=== PATIENT | female | born 1955 | race Asian ===

== ENCOUNTER → 2018-06-17 08:53 | Outpatient (CLI) | payer OTHER, SELFPAY ==
--- NOTE | 2018-06-17 | DI.US.S_ITS ---
PROCEDURE: US ABDOMEN COMPLETE INDICATIONS: EPIGASTRIC PAIN TECHNIQUE: Real-time scanning was performed of the abdominal and retroperitoneal organs, with image documentation. COMPARISON: None. FINDINGS: Liver: The liver demonstrates normal size. The liver demonstrates generalized increased echogenicity. This decreases ultrasound sensitivity for detection of hepatic masses. Gallbladder: No findings of gallstones or sludge are seen. The gallbladder wall is not thickened, measuring 3 mm or less. No specific pericholecystic fluid is seen. The sonographic Bynum sign is negative. Biliary ducts: Not seen. Pancreas: Visualized portions of the pancreas are sonographically normal. Spleen: Spleen is normal in size and homogeneous in echotexture. Kidneys: Kidneys are normal in size and echotexture. Right kidney measures 9.3 cm long; left kidney measures 9 cm long. No hydronephrosis or nephrolithiasis. No solid masses. At the superior pole of the right kidney, there is a cyst seen that measures up to 1.5 cm. Aorta: Visualized aorta is normal in caliber at less than 3 cm. Iliacs: Proximal common iliac arteries are normal in caliber at less than 2.5 cm. IVC: Intrahepatic inferior vena cava is patent. Miscellaneous: No free abdominal fluid. IMPRESSION: The gallbladder demonstrates a normal sonographic appearance. The biliary tree is not seen. The liver demonstrates increased echogenicity. This finding is nonspecific, yet it is most commonly attributed to fatty infiltration. Dictated by: Jamari Eduardo M.D. on 06/17/2018 at 11:56 Approved by: Jamari Eduardo M.D. on 06/17/2018 at 11:57
== END ==
PROVIDERS: PCP Nurse Practitioner Family; Visit Provider Nurse Practitioner Family
DX: R10.13 Epigastric pain (principal)
CPT/HCPCS: 76700

== ENCOUNTER → 2018-07-02 09:28 | Outpatient (CLI) | payer OTHER, SELFPAY ==
--- NOTE | 2018-07-02 | DI.MG.S_ITS ---
BILATERAL DIGITAL SCREENING MAMMOGRAM 3D/2D WITH CAD: 07/02/2018 CLINICAL: Baseline exam. Routine screening. No prior exams were available for comparison. The tissue of both breasts is heterogeneously dense. This may lower the sensitivity of mammography. Current study was also evaluated with a Computer Aided Detection (CAD) system. There are benign vascular calcifications in both breasts. No significant masses, calcifications, or other findings are seen in either breast. IMPRESSION: There is no mammographic evidence of malignancy. A 1 year screening mammogram is recommended. This exam was interpreted at Station ID: [id number]. NOTE: For mammograms, a report in lay terms will be sent to the patient. Approximately 15% of breast malignancies will not be visualized mammographically. In the management of a palpable breast mass, a negative mammogram must not discourage biopsy of a clinically suspicious lesion. Electronically Signed By: Steven gracia/sariah:07/02/2018 17:53:32 letter sent: Normal Exam ACR BI-RADS Category 2: Benign Finding(s) 3342F
== END ==
PROVIDERS: PCP Nurse Practitioner Family; Visit Provider Nurse Practitioner Family
DX: Z12.31 Encounter for screening mammogram for malignant neoplasm of breast (principal)
CPT/HCPCS: 77063; 77067

== ENCOUNTER → 2020-01-23 14:55 | Outpatient (CLI) | payer OTHER, SELFPAY ==
[2020-01-23 16:26] LABS: COVID19 -Nasal RAPID Negative (Negative)
== END ==
PROVIDERS: PCP Nurse Practitioner Family; Visit Provider Nurse Practitioner
DX: Z11.59 Encounter for screening for other viral diseases (principal)
CPT/HCPCS: 87635

== ENCOUNTER 2020-01-26 10:41 | Day surgery (SDC) | payer OTHER, SELFPAY ==
[2020-01-26 11:04] VITALS: BP 165/89; PULSE 75; RESP 16; TEMP 36.4; O2SAT 99; BMI 25.4
[2020-01-26] MEDS: PROPARACAINE 0.5% OPHTH SOL 2 DROPS EYE-OP (11:17)
[2020-01-26] MEDS: CATARACT EYE COMPOUND (10 DROPS/SYRINGE) 3 DROPS EYE-OP (11:27)
--- NOTE | 2020-01-26 12:13 | PM.PREOP ---
Pre-operative Note Interval Note History & Physical reviewed/Exam performed by Physician: Yes Changes to H&P: No
--- NOTE | 2020-01-26 12:13 | PM.OP.1 ---
Operative Date/Time/Diagnoses Pre-op diagnosis: Nuclear cataract right eye Procedure & Clinicians Procedure: Cataract Surgery Same procedure as scheduled: Yes Surgeon: Alfredo Lewis Anesthesia Type: Sedation Operative Notes Procedure in detail: Patient brought to the operating suite. The patient underwent general anesthesia with LMA. Tetracaine drops placed in the right eye. Patient was prepped and draped in sterile manner. Wire lid speculum was placed in the eye. Betadine drops were placed on the eye. This was irrigated. Lidocaine jelly was placed on the eye. A paracentesis port was created with a side-port blade. 0.1 mL 1% preservative free lidocaine was injected into the anterior chamber. The anterior chamber was deepened with viscoelastic. 2.6 mm keratome was used to create a temporal clear corneal incision. Cystotome and Utrata forceps were used to create continuous tear capsulorrhexis. Balanced salt solution was used to hydro dissect the nucleus. The phacoemulsification handpiece was inserted and the nucleus was removed using the stop and chop technique. The irrigation aspiration handpiece was inserted and the remaining cortex was removed. Anterior chamber was deepened with viscoelastic. An Baig ZCB00 intraocular lens with a power of 17.5 was injected into the capsular bag. Irrigation aspiration handpiece was inserted and the remaining viscoelastic was removed. Incision was hydrated with balanced salt solution and found to be leak free with pressure with Weck-Samaria sponges. 0.1 mL Vigamox injected anterior chamber. 0.3 mL Kenalog 10 mg was injected subconjunctivally. Lid speculum was removed. The patient left the operating room in excellent condition. Complications: none Post-operative Condition: stable Disposition: same day surgery
[2020-01-26] MEDS: LACTATED RINGERS 1,000 ML 42 ML IV (12:24)
--- NOTE | 2020-01-26 12:24 | SUR.PREOP ---
IV fluid hung per Dr. Farnsworth, He gave versed; Did not put patient on continuous pulse oximeter as smoking pipe driller and threader is her to take patient to the patient to the OR. Daughter going to the car to wait for her.
[2020-01-26] MEDS: CHONDROIDTIN/SOD HYALURONATE 1.05 ML SYRINGE INTRAOCULA (12:40)
[2020-01-26] MEDS: MOXIFLOXACIN INJ 5 MG/ML VIAL EYE-OP (12:40)
[2020-01-26] MEDS: PHENYLEPHRINE/LIDOCAINE VIAL (OR) 0.2 ML EYE-OP (12:40)
[2020-01-26] MEDS: BALANCED SALT IRRIG SOLN NO.2 500 ML, EPINEPHrine 1 MG IRR (12:41)
[2020-01-26] MEDS: TETRACAINE 0.5% OPHTH DROPS 4 ML 2 DROPS EYE-OP (12:41)
[2020-01-26] MEDS: LIDOCAINE JELLY 2% 5 ML 1 APPLIC TOP (12:41)
[2020-01-26] MEDS: TRIAMCINOLONE 50 MG/5 ML VIAL INJ (12:41)
[2020-01-26 12:51] VITALS: BP 108/60; PULSE 80; RESP 12; TEMP 36.1; O2SAT 90
[2020-01-26 12:56] VITALS: BP 117/69; PULSE 85; RESP 14; TEMP 36.1; O2SAT 96
[2020-01-26 13:01] VITALS: BP 126/77; PULSE 97; RESP 17; TEMP 36.1; O2SAT 95
[2020-01-26 13:06] VITALS: BP 127/73; PULSE 93; RESP 22; TEMP 36.2; O2SAT 95
[2020-01-26 13:09] VITALS: BP 122/80; PULSE 89; RESP 20; TEMP 35.9; O2SAT 94
== END 2020-01-26 13:18 | disposition home or self-care (01) ==
PROVIDERS: PCP Nurse Practitioner Family; Referring Provider Ophthalmology; Visit Provider Ophthalmology
PROC: (CPT 66984; principal; 2020-01-26 12:45)
DX: H25.11 Age-related nuclear cataract, right eye (principal)
CPT/HCPCS: 66984; J0171; J2250; J2704; J3010; J3301

== ENCOUNTER → 2020-02-08 11:07 | Outpatient (CLI) | payer OTHER, SELFPAY ==
[2020-02-08 11:53] LABS: COVID19 -Nasal RAPID Negative (Negative)
== END ==
PROVIDERS: PCP Nurse Practitioner Family; Visit Provider Physician Assistant
DX: Z11.59 Encounter for screening for other viral diseases (principal)
CPT/HCPCS: 87635

== ENCOUNTER 2020-02-09 11:16 | Day surgery (SDC) | payer OTHER, SELFPAY ==
[2020-02-09] VITALS (9 sets, daily range): BP systolic 127–154; BP diastolic 72–88; PULSE 77–94; RESP 12–18; TEMP 36.2–37.1; O2SAT 94–99; BMI 26.4
[2020-02-09] MEDS: PROPARACAINE 0.5% OPHTH SOL 2 DROPS EYE-OP (12:28)
[2020-02-09] MEDS: CATARACT EYE COMPOUND (10 DROPS/SYRINGE) 3 DROPS EYE-OP (12:31)
--- NOTE | 2020-02-09 13:04 | PM.PREOP ---
Pre-operative Note Interval Note History & Physical reviewed/Exam performed by Physician: Yes Changes to H&P: No
--- NOTE | 2020-02-09 13:05 | PM.OP.1 ---
Operative Date/Time/Diagnoses Pre-op diagnosis: Nuclear Cataract Left eye Post-op diagnosis: same Procedure & Clinicians Same procedure as scheduled: Yes Surgeon: Alfredo Lewis Anesthesia Type: Sedation Operative Notes Procedure in detail: Patient brought to the operating suite. Patient underwent genereal anesthesia. Tetracaine drops placed in the left eye. Patient was prepped and draped in sterile manner. Wire lid speculum was placed in the eye. Betadine drops were placed on the eye. This was irrigated. Lidocaine jelly was placed on the eye. A paracentesis port was created with a side-port blade. 0.1 mL 1% preservative free lidocaine was injected into the anterior chamber. The anterior chamber was deepened with viscoelastic. 2.6 mm keratome was used to create a temporal clear corneal incision. Cystotome and Utrata forceps were used to create continuous tear capsulorrhexis. Balanced salt solution was used to hydro dissect the nucleus. The phacoemulsification handpiece was inserted and the nucleus was removed using the stop and chop technique. The irrigation aspiration handpiece was inserted and the remaining cortex was removed. Anterior chamber was deepened with viscoelastic. An Baig ZCB00 intraocular lens with a power of 18.0 was injected into the capsular bag. Irrigation aspiration handpiece was inserted and the remaining viscoelastic was removed. Incision was hydrated with balanced salt solution and found to be leak free with pressure with Weck-Samaria sponges. 0.1 mL Vigamox injected anterior chamber. 0.3 mL Kenalog 10 mg was injected subconjunctivally. Lid speculum was removed. The patient left the operating room in excellent condition. Complications: none Post-operative Condition: stable Disposition: same day surgery
[2020-02-09] MEDS: TRIAMCINOLONE 50 MG/5 ML VIAL INJ (13:25)
[2020-02-09] MEDS: CHONDROIDTIN/SOD HYALURONATE 1.05 ML SYRINGE INTRAOCULA (13:25)
[2020-02-09] MEDS: LIDOCAINE JELLY 2% 5 ML 1 APPLIC TOP (13:25)
[2020-02-09] MEDS: MOXIFLOXACIN INJ 5 MG/ML VIAL EYE-OP (13:25)
[2020-02-09] MEDS: TETRACAINE 0.5% OPHTH DROPS 4 ML 2 DROPS EYE-OP (13:25)
[2020-02-09] MEDS: PHENYLEPHRINE/LIDOCAINE VIAL (OR) 0.2 ML EYE-OP (13:25)
[2020-02-09] MEDS: BALANCED SALT IRRIG SOLN NO.2 500 ML, EPINEPHrine 1 MG IRR (13:26)
--- NOTE | 2020-02-09 13:54 | SUR.PHASEI ---
1352 daughter brought into phase 1 to be available for when pt. pitts.
== END 2020-02-09 14:30 | disposition home or self-care (01) ==
PROVIDERS: PCP Nurse Practitioner Family; Referring Provider Ophthalmology; Visit Provider Ophthalmology
PROC: (CPT 66984; principal; 2020-02-09 13:15)
DX: H25.12 Age-related nuclear cataract, left eye (principal)
CPT/HCPCS: 66984; J0171; J3010; J3301

== ENCOUNTER 2020-10-28 15:30 | Emergency (ER) | payer OTHER, MEDICAID, SELFPAY ==
[2020-10-28 15:48] VITALS: BP 166/82; PULSE 75; RESP 18; TEMP 36.8; O2SAT 97; BMI 25.0
--- NOTE | 2020-10-28 15:52 | DI.RAD.S_ITS ---
PROCEDURE: XR ANKLE RT MIN 3V INDICATIONS: fall TECHNIQUE: 3 views of the ankle were acquired. COMPARISON: None. FINDINGS: Bones: Fracture to the base of the anterior process of the calcaneus. Ankle mortise is normally aligned. No suspicious bony lesions. Soft tissues: No tibiotalar joint effusion. Achilles tendon appears normal. Soft tissue swelling is noted and ligamentous injury cannot be excluded. IMPRESSION: Displaced calcaneus fracture. Dictated by: Kait Church MD, PhD on 10/28/2020 at 16:14 Approved by: Kait Church MD, PhD on 10/28/2020 at 16:16
[2020-10-28 19:52] VITALS: BP 190/90; PULSE 67; RESP 16; O2SAT 98
--- NOTE | 2020-10-28 20:21 | DI.CT.S_ITS ---
PROCEDURE: CT LE RT WO CON INDICATIONS: calcaneal fx on Xray TECHNIQUE: Noncontrast 1-1.5 mm axial sections acquired from above the tibiotalar joint to the bottom of the calcaneus, with coronal and sagittal reformats. COMPARISON: [facility], CR, XR ANKLE RT MIN 3V, 10/28/2020, 15:49. FINDINGS: Image quality: Excellent. Bones: There is a markedly comminuted fracture involving much of the anterior portion of the calcaneus, but largely sparing the posterior subtalar joint. Fracture plane involves the middle subtalar joint. A dominant fracture plane is seen in the coronal plane between the posterior and anterior portion of the calcaneus. A horizontal plane extends through the anterior calcaneus to the calcaneocuboid articulation. There is no allyson dislocation. Probable nondisplaced, comminuted and impacted fracture of the cuboid. Soft tissues: Achilles attachment appears normal. There is subcutaneous edema. Abnormal morphology of the peroneus brevis tendon. Other tendons appear grossly normal. Musculature is within normal limits. IMPRESSION: 1. Comminuted and impacted mainly anterior calcaneal fracture. There is relative sparing of the posterior subtalar joint. 2. Probable impacted, comminuted, but nondisplaced cuboid fracture. 3. Probable peroneus brevis tendinopathy. Dictated by: Juanita Garrison M.D. on 10/28/2020 at 21:37 Approved by: Juanita Garrison M.D. on 10/28/2020 at 21:52
--- NOTE | 2020-10-28 20:36 | PC.NURSE ---
Difficulty to communicate with pt. Used advanced practice nurse psychotherapist phone to assist.
--- NOTE | 2020-10-28 22:07 | ED_ITS ---
HPI - Extremity Injury (Lower) General Chief Complaint: Extremity Injury, Lower Stated Complaint: RIGHT SIDE ANKLE INJURY Time Seen by Provider: 10/28/20 19:42 Source: patient Mode of arrival: Ambulatory Limitations: no limitations History of Present Illness HPI Narrative: 65-year-old female nonsmoker with noncontributory medical history presents with her daughter and a chief complaint of right ankle and foot pain and swelling since an injury suffered about 1-2 months ago. She had been climbing on a ladder doing some work at home when she slipped and fell onto her right foot. She denies any neck or back pain. She denies numbness, tingling or weakness. She has not been seen or evaluated for this and due to the ongoing pain and swelling thought she would come here tonight. Related Data Home Medications Medication Instructions Recorded Confirmed glucosamine sulfate 500 mg tablet 500 mg PO TID 02/09/20 02/09/20 (Glucosamine) meloxicam 15 mg tablet 15 mg PO DAILY 02/09/20 02/09/20 omega-3 fatty acids 500 mg PO DAILY 02/09/20 02/09/20 omeprazole 20 mg capsule,delayed 20 mg PO DAILY 02/09/20 02/09/20 release Allergies Allergy/AdvReac Type Severity Reaction Status Date / Time No Known Drug Allergies Allergy Verified 10/28/20 15:51 Review of Systems Review of Systems Narrative: GENERAL: Denies chills, fatigue, malaise, fever, sweats. HEENT: Denies sinus pain, ear pain, sore throat, difficulty swallowing, dizziness. RESPIRATORY: Denies dyspnea, cough, wheezing, hemoptysis, sputum. CARDIOVASCULAR: Denies chest pain, palpitations, orthopnea, edema, GASTROINTESTINAL: Denies nausea, vomiting, abdominal pain, diarrhea, constipation, melena. : Denies dysuria, frequency, incontinence, hematuria, urinary retention. MUSCULOSKELETAL: See HPI SKIN: Denies rash, skin lesions, or other NEUROLOGIC: Denies weakness, headache, numbness, change in speech, confusion, seizures, incoordination. PSYCHIATRIC: No concerning psychosocial issues. 12 point review of systems is negative except for those stated above Patient History Social History household members: spouse and family Smoking Status: Never smoker alcohol intake: never Smoking Status: Never smoker alcohol intake frequency: 0-2 drinks per day Substance Use Type: does not use Exam Narrative Exam Narrative: GEN: AOx3 and in mild distress EYES: Pupils are equal, round, and reactive to light and accommodation. Extraoccular muscles are intact bilaterally. There is no subconjunctival hemorrhage or exudate. CHEST: Lungs are clear to auscultation bilaterally and free of wheezes, rales, or rhonchi. Heart rate is regular rhythm, there are no murmurs, clicks, rubs, or gallops. There is no chest wall tenderness. ABD: Abdomen is soft and nontender. There is no guarding or rebound. Bowel sounds are normal in all 4 quadrants. There is no mass or organomegaly. EXT: Full but painful range of motion of the right ankle with noted swelling of majority of ankle including plantar surface of posterior aspect of foot. Closed, isolated and neurovascularly intact SKIN: Warm, pink, and dry. No erythema or rash Initial Vital Signs Initial Vital Signs: Vital Signs Temperature 98.2 F 10/28/20 15:48 Pulse Rate 75 10/28/20 15:48 Respiratory Rate 18 10/28/20 15:48 Blood Pressure 166/82 H 10/28/20 15:48 Pulse Oximetry 97 10/28/20 15:48 Course Orders Ordered: ED Orders 10/28/20 20:21 CT LE RT wo con Stat Consultations Consultation #1: Discussed with on-call orthopedist, despite age of injury he recommends splinting with ortho boot, nonweightbearing use of crutches and follow-up with clinic Vital Signs Vital signs: Vital Signs - 8 hr 10/28/20 19:52 10/28/20 22:24 Pulse Rate 67 78 Respiratory Rate 16 18 Blood Pressure 190/90 H 179/90 H Pulse Oximetry 98 97 MDM - Extremity Injury (Lower) Imaging Data Extremity x-ray #1: Radiologist's Impression: [address] [address] XRay Report Signed Patient: Henri Washington MR#: [id number] : 1955 Acct:[id number] Age/Sex: 65 / F Date of Service: 10/28/20 Loc: ED Accession Number: [id number] ?? Procedure: XR ankle RT min 3V Ordering Provider: Botnick,Theresa D.O. PROCEDURE:? XR ANKLE RT MIN 3V ? INDICATIONS:? fall ? TECHNIQUE:? 3 views of the ankle were acquired.? ? COMPARISON:? None. ? FINDINGS:? ? Bones:? Fracture to the base of the anterior process of the calcaneus.? Ankle mortise is normally aligned.? No suspicious bony lesions.? ? Soft tissues:? No tibiotalar joint effusion.? Achilles tendon appears normal.? Soft tissue swelling is noted and ligamentous injury cannot be excluded. ? ? IMPRESSION:? Displaced calcaneus fracture.? ? ? Dictated by: Kait Church MD, PhD on 10/28/2020 at 16:14 ? ? Approved by: Kait Church MD, PhD on 10/28/2020 at 16:16 ? CT LE: Radiologist's Impression: Henri Washington?(VIP)??65??F??1955 ? Allergy/Adv: No Known Drug Allergies (More??) Close Lower Extremity CT (Signed) Juanita Garrison - 10/28/20 Ankle X-Ray (Signed) Kait Church - 10/28/20 Mammogram Screening (Addendum) Steven Ramirez - 07/02/18 Abdomen Ultrasound (Signed) Jamari Eduardo - 06/17/18 Launch?[place] [address] CT Scan Report Signed Patient: Henri Washington MR#: [id number] : 1955 Acct:[id number] Age/Sex: 65 / F Date of Service: 10/28/20 Loc: ED Accession Number: [id number] ?? Procedure: CT LE RT wo con Ordering Provider: Tyler Scruggs D.O. PROCEDURE:? CT LE RT WO CON ? INDICATIONS:? calcaneal fx on Xray ? TECHNIQUE:? Noncontrast 1-1.5 mm axial sections acquired from above the tibiotalar joint to the bottom of the calcaneus, with coronal and sagittal reformats.? ? COMPARISON:? Located [facility], CR, XR ANKLE RT MIN 3V, 10/28/2020, 15:49. ? FINDINGS:? Image quality:? Excellent.? ? Bones:? There is a markedly comminuted fracture involving much of the anterior portion of the calcaneus, but largely sparing the posterior subtalar joint.? Fracture plane involves the middle subtalar joint.? A dominant fracture plane is seen in the coronal plane between the posterior and anterior portion of the calcaneus.? A horizontal plane extends through the anterior calcaneus to the calcaneocuboid articulation.? There is no allyson dislocation.? Probable nondisplaced, comminuted and impacted fracture of the cuboid. ? Soft tissues:? Achilles attachment appears normal.? There is subcutaneous edema.? Abnormal morphology of the peroneus brevis tendon.? Other tendons appear grossly normal.? Musculature is within normal limits. ? IMPRESSION:? 1. Comminuted and impacted mainly anterior calcaneal fracture.? There is relative sparing of the posterior subtalar joint. 2. Probable impacted, comminuted, but nondisplaced cuboid fracture. 3. Probable peroneus brevis tendinopathy.? ? ? Dictated by: Juanita Garrison M.D. on 10/28/2020 at 21:37 ? ? Approved by: Juanita Garrison M.D. on 10/28/2020 at 21:52 ? Discharge Plan Departure Patient Disposition: Home Clinical Impression: Calcaneal fracture Qualifiers: Encounter type: initial encounter Calcaneus location: body Fracture type: closed Fracture alignment: displaced Laterality: right Qualified Code(s): S92.011A - Displaced fracture of body of right calcaneus, initial encounter for closed fracture Instructions: DI for Foot Fracture Activity Restrictions/Additional Instructions: *You have been diagnosed with [right foot fracture ] *What to do: *Please continue to take your regular medications as directed. [ ] New medication prescriptions sent to your pharmacy: [ ] [ ] New medication written as a paper prescription [x] Tylenol and occasional Motrin for pain *Please follow up with [ Real] of [facility] in 2-3 days, call for an appointment. Let them know you were seen in the Emergency Department and that we ask that you be seen in follow up. We will electronically transmit a record of today's note if your PCP is in our system *Return to Emergency Department if you should have any new, worsening or concerning symptoms, such as [worsening pain, significant swelling, cold extremities, numbness, tingling, weakness or other bothersome symptoms NO WEIGHT BEARING Splint Care: Keep splint clean and dry. Elevated affected body part to decrease swelling. OK to use ice pack on the affected body part. Use for 15-20 minutes each time, for 5-6x per day. If you develop worsening pain, numbness, tingling, discoloration of the affected body part, loosen the splint by loosening the JOSE wrap, and either see your doctor for an urgent re-assessment, or return to the Emergency Department. Return to the Emergency Department for any new or worsening symptoms. Prescriptions: No Action meloxicam 15 mg Tablet 15 mg PO DAILY RF: 0 glucosamine sulfate [Glucosamine] 500 mg Tablet 500 mg PO TID RF: 0 omeprazole 20 mg Capsule,Delayed Release(Dr/Ec) 20 mg PO DAILY RF: 0 [place] 3 Natural Fish Oil Conc Capsule 500 mg PO DAILY RF: 0 Referrals: Wanda Portillo ARNP [Primary Care Provider] - Lincoln Noble MD [Physician] -
[2020-10-28 22:24] VITALS: BP 179/90; PULSE 78; RESP 18; O2SAT 97
== END 2020-10-28 22:25 | disposition home or self-care (01) ==
PROVIDERS: Emergency Provider Emergency Medicine; PCP Nurse Practitioner Family
DX: S92.011A Displaced fracture of body of right calcaneus, initial encounter for closed fracture (principal)
CPT/HCPCS: 73610; 73700; 99284

== ENCOUNTER → 2020-12-29 16:03 | Outpatient (CLI) | payer OTHER, MEDICAID, SELFPAY ==
--- NOTE | 2020-12-29 | DI.MG.S_ITS ---
BILATERAL DIGITAL SCREENING MAMMOGRAM 3D/2D WITH CAD: 12/29/2020 CLINICAL: Routine screening. Comparison is made to exam dated: 07/02/2018 [facility]. The tissue of both breasts is heterogeneously dense. This may lower the sensitivity of mammography. Current study was also evaluated with a Computer Aided Detection (CAD) system. There are benign vascular calcifications in both breasts. No significant masses, calcifications, or other findings are seen in either breast. There has been no significant interval change. IMPRESSION: BENIGN There is no mammographic evidence of malignancy. A 1 year screening mammogram is recommended. This exam was interpreted at Station ID: [id number]. NOTE: For mammograms, a report in lay terms will be sent to the patient. Approximately 15% of breast malignancies will not be visualized mammographically. In the management of a palpable breast mass, a negative mammogram must not discourage biopsy of a clinically suspicious lesion. Electronically Signed By: Stas Spicer M.D. at/sariah:12/29/2020 16:57:56 letter sent: Normal Exam ACR BI-RADS Category 2: Benign Finding(s) 3342F
== END ==
PROVIDERS: PCP Nurse Practitioner Family; Referring Provider Internal Medicine; Visit Provider Internal Medicine
DX: Z12.31 Encounter for screening mammogram for malignant neoplasm of breast (principal)
CPT/HCPCS: 77063; 77067

== ENCOUNTER → 2022-01-10 16:20 | Outpatient (CLI) | payer OTHER, MEDICAID, SELFPAY ==
--- NOTE | 2022-01-10 | DI.MG.S_ITS ---
BILATERAL DIGITAL SCREENING MAMMOGRAM 3D/2D WITH CAD: 01/10/2022 CLINICAL: Routine screening. Comparison is made to exams dated: 12/29/2020 mammogram and 07/02/2018 mammogram - [facility]. There are scattered areas of fibroglandular density in both breasts (category b / 25%-50% glandular tissue). Current study was also evaluated with a Computer Aided Detection (CAD) system. There are benign vascular calcifications in both breasts. No significant masses, calcifications, or other findings are seen in either breast. There has been no significant interval change. IMPRESSION: BENIGN There is no mammographic evidence of malignancy. A 1 year screening mammogram is recommended. Based on the Tyrer Cuzick model (a risk assessment model) the patient's lifetime risk is 5.3% and her 10 year risk is 2.5%. According to the ACR, ACS, and NCCN guidelines, an annual breast MRI exam along with mammogram is recommended if the patient's lifetime risk is 20% or greater. This exam was interpreted at Station ID: [id number]. NOTE: For mammograms, a report in lay terms will be sent to the patient. Approximately 15% of breast malignancies will not be visualized mammographically. In the management of a palpable breast mass, a negative mammogram must not discourage biopsy of a clinically suspicious lesion. Electronically Signed By: Stas cosme/sariah:01/11/2022 08:12:12 letter sent: Normal Exam ACR BI-RADS Category 2: Benign Finding(s) 3342F
== END ==
PROVIDERS: PCP Nurse Practitioner Family; Referring Provider Nurse Practitioner Family; Visit Provider Nurse Practitioner Family
DX: Z12.31 Encounter for screening mammogram for malignant neoplasm of breast (principal)
CPT/HCPCS: 77063; 77067

== ENCOUNTER → 2022-08-02 15:16 | Outpatient (CLI) | payer OTHER, MEDICAID, SELFPAY ==
--- NOTE | 2022-08-02 | DI.RAD.S_ITS ---
Bone Density Report Name: BONY GIFFORD Age: 67 Sex: Female Ethnicity: White Date of : 1955 Indication: postmenopausal; screening for osteoporosis; Referring Provider: SARAH STRONG Study: Bone densitometry was performed. Exam Date: August 02, 2022 Accession number: [id number] Bone Density: Region BMD T-score Z-score Classification AP Spine(L1-L4) 0.800 -2.2 -0.4 Osteopenia Femoral Neck (Left) 0.509 -3.1 -1.5 Osteoporosis Total Hip (Left) 0.784 -1.3 0.0 Osteopenia Femoral Neck (Right) 0.549 -2.7 -1.1 Osteoporosis Total Hip (Right) 0.824 -1.0 0.3 Normal Total Hip Mean 0.804 -1.2 0.2 Osteopenia World Health Organization criteria for BMD impression classify patients as: Normal (T-score at or above -1.0), Osteopenia (T-score between -1.0 and -2.5), or Osteoporosis (T-score at or below -2.5). 10-year Fracture Risk: FRAX not reported because: Some T-score for Spine Total or Hip Total or Femoral Neck at or below -2.5 Impression: The patient has osteoporosis, based on the Left Femoral Neck T-score. Discussion: INCREASED RISK OF FRACTURE. BONE DENSITY IS UNDESIRABLY LOW AT ONE OR MORE SKELETAL SITES, CONSISTENT WITH POSTMENOPAUSAL OSTEOPOROSIS. This patient's lowest T-score meets the World Health Organization's (WHO) criteria for osteoporosis at one or more sites (T-score -2.5 or below). In untreated patients, the risk of osteoporotic fracture increases approximately two-fold for each 1.0 SD decrease in T-score. Low bone density is not the only risk factor for fracture; also consider factors such as patient's age, frailty or poor health, risk of falling, risk of injury, previous osteoporotic fracture, family history of osteoporosis, cigarette smoking, low body weight, etc. Not everyone with low bone mineral density has osteoporosis; osteomalacia and other metabolic bone disorders should also be considered. Patients who have osteoporosis should be evaluated for specific diseases and conditions (secondary causes) that may cause or contribute to bone loss. The [place] [employer] Endocrinologists (AACE) and National Osteoporosis Foundation (NOF) recommend pharmacologic intervention for all postmenopausal women whose T-score is in this range. The patient should follow a healthful lifestyle (good nutrition with adequate calcium and vitamin D, and appropriate weight-bearing exercise). Follow-Up: Consider a repeat BMD and Vertebral Fracture Assessment (VFA) exam in 2 years or sooner if medically necessary, to reassess this patient's status. Reported by: GIAN LAKE M.D. on 08/02/2022 3:41:00 PM.
== END ==
PROVIDERS: PCP Internal Medicine; Referring Provider Internal Medicine; Visit Provider Internal Medicine
DX: Z13.820 Encounter for screening for osteoporosis (principal); Z78.0 Asymptomatic menopausal state; M81.0 Age-related osteoporosis without current pathological fracture
CPT/HCPCS: 77080

== ENCOUNTER → 2022-11-12 10:21 | Outpatient (CLI) | payer OTHER, MEDICAID, SELFPAY ==
--- NOTE | 2022-11-12 | DI.RAD.S_ITS ---
PROCEDURE: XR CHEST 2V INDICATIONS: cough present for greater than 3 weeks TECHNIQUE: 2 views of the chest were acquired. COMPARISON: None. FINDINGS: Surgical changes and devices: None. Lungs and pleura: Lung volumes. Minimal bibasilar opacities present. No pleural effusion or pneumothorax. Mediastinum: Cardiac silhouette is at the upper limit of normal in size, may be accentuated by low lung volumes. Bones and chest wall: No suspicious bony abnormalities. Soft tissues appear unremarkable. IMPRESSION: Low lung volumes with minimal bibasilar opacities, suspect hypoventilatory atelectasis but aspiration or pneumonia are difficult to fully exclude. Dictated by: Octavio Washington M.D. on 11/12/2022 at 14:16 Approved by: Octavio Washington M.D. on 11/12/2022 at 14:19
== END ==
PROVIDERS: PCP Internal Medicine; Referring Provider Registered Nurse; Visit Provider Registered Nurse
DX: R05.8 Other specified cough (principal)
CPT/HCPCS: 71046

== ENCOUNTER → 2022-12-26 14:47 | Outpatient (CLI) | payer OTHER, MEDICAID, SELFPAY | PROVIDERS: PCP Internal Medicine; Referring Provider Internal Medicine; Visit Provider Internal Medicine | DX: R05.8 Other specified cough (principal) | CPT/HCPCS: 94060; 94726; 94729 ==

== ENCOUNTER → 2023-01-28 16:29 | Outpatient (CLI) | payer OTHER, MEDICAID, SELFPAY ==
--- NOTE | 2023-01-28 | DI.MG.S_ITS ---
BILATERAL DIGITAL SCREENING MAMMOGRAM 3D/2D WITH CAD: 01/28/2023 CLINICAL: Routine screening. Comparison is made to exams dated: 01/10/2022 mammogram, 12/29/2020 mammogram, and 07/02/2018 mammogram - [facility]. There are scattered areas of fibroglandular density in both breasts (category b / 25%-50% glandular tissue). Current study was also evaluated with a Computer Aided Detection (CAD) system. There are benign vascular calcifications in both breasts. No significant masses, calcifications, or other findings are seen in either breast. There has been no significant interval change. IMPRESSION: BENIGN There is no mammographic evidence of malignancy. A 1 year screening mammogram is recommended. Based on the Tyrer Cuzick model (a risk assessment model) the patient's lifetime risk is 5.1% and her 10 year risk is 2.5%. According to the ACR, ACS, and NCCN guidelines, an annual breast MRI exam along with mammogram is recommended if the patient's lifetime risk is 20% or greater. This exam was interpreted at Station ID: [id number]. NOTE: For mammograms, a report in lay terms will be sent to the patient. Approximately 15% of breast malignancies will not be visualized mammographically. In the management of a palpable breast mass, a negative mammogram must not discourage biopsy of a clinically suspicious lesion. Electronically Signed By: Marvin sánchez/sariah:01/29/2023 08:58:37 letter sent: Normal Exam ACR BI-RADS Category 2: Benign Finding(s) [id number]
== END ==
PROVIDERS: PCP Internal Medicine; Referring Provider Internal Medicine; Visit Provider Internal Medicine
DX: Z12.31 Encounter for screening mammogram for malignant neoplasm of breast (principal)
CPT/HCPCS: 77063; 77067

== ENCOUNTER → 2024-01-30 07:32 | Outpatient (CLI) | payer OTHER, MEDICAID, SELFPAY ==
--- NOTE | 2024-01-30 07:33 | DI.MG.S_ITS ---
BILATERAL DIGITAL SCREENING MAMMOGRAM 3D/2D WITH CAD: 01/30/2024 CLINICAL: Routine screening. Comparison is made to exams dated: 01/28/2023 mammogram, 01/10/2022 mammogram, 12/29/2020 mammogram, and 07/02/2018 mammogram - [facility]. There are scattered areas of fibroglandular density (category b / 25%-50% glandular tissue). Current study was also evaluated with a Computer Aided Detection (CAD) system. There is a focal asymmetry in the left breast at 12 o'clock middle depth. No other significant masses, calcifications, or other findings are seen in either breast. IMPRESSION: INCOMPLETE: NEED ADDITIONAL IMAGING EVALUATION The focal asymmetry in the left breast is indeterminate. A diagnostic mammogram and ultrasound is recommended. Based on the Tyrer Cuzick model (a risk assessment model) the patient's lifetime risk is 4.8% and her 10 year risk is 2.5%. According to the ACR, ACS, and NCCN guidelines, an annual breast MRI exam along with mammogram is recommended if the patient's lifetime risk is 20% or greater. This exam was interpreted at Station ID: [id number]. NOTE: For mammograms, a report in lay terms will be sent to the patient. Approximately 15% of breast malignancies will not be visualized mammographically. In the management of a palpable breast mass, a negative mammogram must not discourage biopsy of a clinically suspicious lesion. Electronically Signed By: Harriet Kearney M.D., Ph.D. eb/:01/31/2024 10:28:03 letter sent: Additional Imaging Needed ACR BI-RADS Category 0: Incomplete: Need Additional Imaging Evaluation
== END ==
PROVIDERS: PCP Internal Medicine; Referring Provider Internal Medicine; Visit Provider Internal Medicine
DX: Z12.31 Encounter for screening mammogram for malignant neoplasm of breast (principal)
CPT/HCPCS: 77063; 77067

== ENCOUNTER → 2024-03-24 08:49 | Outpatient (CLI) | payer OTHER, SELFPAY ==
--- NOTE | 2024-03-24 | DI.US.S_ITS ---
LIMITED ULTRASOUND OF LEFT BREAST: 03/24/2024 CLINICAL: Patient returns today to evaluate a focal asymmetry in the left breast. Comparison is made to exams dated: 03/24/2024 mammogram, 01/30/2024 mammogram, 01/28/2023 mammogram, 01/10/2022 mammogram, 12/29/2020 mammogram, and 07/02/2018 mammogram - [facility]. Color flow and real-time ultrasound of the left breast 12 o'clock region were performed. Sanders scale images of the real-time examination were reviewed. There is a benign 0.5 cm x 0.5 cm x 0.3 cm oval simple cyst in the left breast at 12 o'clock middle depth 4 cm from the nipple. This oval simple cyst is anechoic with a well-defined boundary. This correlates with mammography findings. Color flow imaging demonstrates that there is no vascularity present. IMPRESSION: BENIGN There is no sonographic evidence of malignancy. The 0.5 cm simple cyst in the left breast is benign. Exam findings were conveyed to the patient. A 1 year screening mammogram is recommended. This exam was interpreted at Station ID: [id number]. Electronically Signed By: Marvin Sharp M.D. slc/:03/24/2024 09:41:17 letter sent: Normal Exam ACR BI-RADS Category 2: Benign
--- NOTE | 2024-03-24 | DI.MG.S_ITS ---
UNILATERAL LEFT DIGITAL DIAGNOSTIC MAMMOGRAM 3D/2D WITH ADDITIONAL VIEWS: 03/24/2024 CLINICAL: Additional evaluation requested from prior study. Comparison is made to exams dated: 01/30/2024 mammogram, 01/28/2023 mammogram, and 01/10/2022 mammogram - . There are scattered areas of fibroglandular density (category b / 25%-50% glandular tissue). There is a 0.6 cm oval focal asymmetry with a circumscribed margin in the left breast at 12 o'clock middle depth. No other significant masses or calcifications are seen in the breast. IMPRESSION: INCOMPLETE: NEED ADDITIONAL IMAGING EVALUATION The 0.6 cm oval focal asymmetry in the left breast resembles a cyst and is indeterminate. A targeted ultrasound is recommended and will immediately follow. Based on the Tyrer Cuzick model (a risk assessment model) the patient's lifetime risk is 4.6% and her 10 year risk is 2.5%. According to the ACR, ACS, and NCCN guidelines, an annual breast MRI exam along with mammogram is recommended if the patient's lifetime risk is 20% or greater. This exam was interpreted at Station ID: [id number]. NOTE: For mammograms, a report in lay terms will be sent to the patient. Approximately 15% of breast malignancies will not be visualized mammographically. In the management of a palpable breast mass, a negative mammogram must not discourage biopsy of a clinically suspicious lesion. Electronically Signed By: Marvin Sharp M.D. slc/:03/24/2024 09:34:12 letter sent: Additional Imaging Needed ACR BI-RADS Category 0: Incomplete: Need Additional Imaging Evaluation
== END ==
LOC: MAMMO 08:50
PROVIDERS: PCP Internal Medicine; Referring Provider Internal Medicine; Visit Provider Internal Medicine
DX: R92.8 Other abnormal and inconclusive findings on diagnostic imaging of breast (principal); N64.89 Other specified disorders of breast; N60.02 Solitary cyst of left breast
CPT/HCPCS: 76642; 77065; G0279

== ENCOUNTER → 2024-07-22 11:10 | Outpatient (CLI) | payer OTHER, MEDICAID, SELFPAY ==
--- NOTE | 2024-07-22 11:15 | DI.RAD.S_ITS ---
PROCEDURE: XR HIP W PEL IF DONE LT 2V INDICATIONS: BACK/HIP PAIN TECHNIQUE: Two views of the left were acquired. COMPARISON: None. FINDINGS: Bones: There are no osseous abnormalities. SI and hip joints: Normal in width and alignment without arthritic change Soft tissues: No soft tissue swelling, calcification or mass. IMPRESSION: Normal pelvis Dictated by: Omar Osborn M.D. on 07/23/2024 at 10:47 Approved by: Omar Osborn M.D. on 07/23/2024 at 10:47
--- NOTE | 2024-07-22 11:16 | DI.RAD.S_ITS ---
PROCEDURE: XR LUMBAR SPINE MIN 4V INDICATIONS: BACK/HIP PAIN TECHNIQUE: 5 views of the lumbar spine were acquired, including bilateral oblique views. COMPARISON: None. FINDINGS: Lumbar spine curvature and alignment: Slight leftward curve appreciated. Bones: There are no osseous abnormalities. Disc spaces: Mild degenerative disc disease is seen at L1-2 through L3-4 with moderate L4-5 degenerative disc disease. There is moderate degenerative facet disease L5-S1. Soft tissues: No soft tissue swelling, calcification or mass. IMPRESSION: Degeneration Dictated by: Omar Osborn M.D. on 07/23/2024 at 10:47 Approved by: Omar Osborn M.D. on 07/23/2024 at 10:48
== END ==
PROVIDERS: PCP Family Medicine; Referring Provider Family Medicine; Visit Provider Family Medicine
DX: M51.16 Intervertebral disc disorders with radiculopathy, lumbar region (principal); M47.27 Other spondylosis with radiculopathy, lumbosacral region; G89.29 Other chronic pain
CPT/HCPCS: 72110; 73502